=== PATIENT | male | born 1955 | race Caucasian/White ===

== ENCOUNTER → 2018-07-19 09:51 | Outpatient (CLI) | payer OTHER ==
[2015-12-06 09:08] VITALS: BMI 28.0
[~2018-07-19 09:51] MED LIST: ASPIRIN81 MG PO; BACTRIM 400-801 TAB PO; BETAPACE 80 MG80 MG PO; EFFIENT10 MG PO; GABAPENTIN100 MG PO; GLUCOPHAGE1000 MG PO; LANTUS INSULIN10 ML SC; NIFEDIPINE ER60 MG PO; PRAVACHOL20 MG PO; PRINIVIL10 MG PO; VOLTAREN75 MG
== END | disposition home or self-care (01) ==
LOC: D.HCCARDIO 07-12 10:00
PROVIDERS: ATTEND Internal Medicine Cardiovascular Disease
DX: I34.0 Nonrheumatic mitral (valve) insufficiency (principal)

== ENCOUNTER → 2019-08-10 08:06 | Outpatient (CLI) | payer MEDICARE ==
[2015-12-06 09:08] VITALS: BMI 28.0
== END | disposition home or self-care (01) ==
LOC: D.HCCECHO 08:06
PROVIDERS: ATTEND Internal Medicine Cardiovascular Disease
DX: I34.0 Nonrheumatic mitral (valve) insufficiency (principal)

== ENCOUNTER 2019-10-02 11:12 | Outpatient (CLI) | payer MEDICARE ==
[~2019-10-02] VITALS: Ht 193 cm; Wt 107.5 kg
--- NOTE | ~2019-10-02 | HEMODYNAMI ---
PATIENT:CAR ROMAN MEDICAL RECORD: [id number] : 51 LOCATION:[facility] ADMISSION DATE: 10/02/19 Generatedon:10/02/201913:22 Patient name: CAR ROMAN Patient #: [id number] SSN: [id number] : 1955 Date of study: 10/02/2019 Page: Of Hemodynamic Procedure Report Patient Data Patient Demographics Procedure consent was obtained First Name: CAR Gender: Male Last Name: ABEL : 1955 [facility] Initial: DANIKA Age: 64 year(s) Patient #: [id number] Race: SSN: [id number] Additional ID: [id number] Contact details [address]: [address] [place] [address] State: [place] City: [place] Zip code: [address] Past Medical History Allergies Allergen Reaction Date Comments Reported Other allergy 10/02/2019 SULFA/CODEINE Admission Admission Data Admission Date: 10/02/2019 Admission Time: 11:12 Arrival Date: 10/02/2019 Arrival Time: 0:00 Height (in.): 75.98 BSA: 2.38 (m2) Height (cm.): 193 BMI: 28.73 (kg/m2) Weight (lbs.): 235.9 Weight (kg.): 107 Lab Results Lab Result Date: 10/02/2019 Lab Result Time: 0:00 CBC Name Units Result Min Max Hematocrit % 45.2 --(-*--)-- 42 54 Hemoglobin g/dl 15 --(-*--)-- 13.5 17.5 Procedure Procedure Types Cath Procedure Diagnostic Procedure Cardioversion External Procedure Description Procedure Date Procedure Date: 10/02/2019 Procedure Start Time: 13:10 Procedure End Time: 13:21 Procedure Staff Name Function Dante Nuñez MD Performing Physician Pura Delaney RT Monitor Mu Gonzales RN Nurse Ron Vaca MD Additional personnel Indication Arrhythmia Atrial Fib Procedure Data Procedure Complications No complications Procedure Medications Medication Administration Route Dosage Oxygen etCO2 Nasal cannula 2 l/min Refer to Anesthesia Notes for Sedation Medications Hemodynamics Rest BSA: 2.38 (m2) HGB: 15 (g/dl) O2 Consumption: Estimated: 272.58 (ml/min) O2 Consumption indexed: Estimated:114.53 (ml/min/m) Heart Rate: 65 (bpm) Snapshots Pre Cath Intra NCS Post Cath Vital Signs Time Heart Resp SPO2 etCO2 NIBP (mmHg) Rhythm Pain Sedation Rate (ipm) (%) (mmHg) Status Level (bpm) 13:09:15 74 20 100 33.6 146/85(116) NSR 0 (11) 10(A) , No pain 13:13:31 54 17 94 24.6 123/75(104) NSR 0 (11) 9(A) , No pain 13:14:49 53 16 97 28.4 124/70(106) NSR 0 (11) 10(A) , No pain 13:18:16 52 16 99 16.4 124/76(109) NSR 0 (11) 10(A) , No pain Medications Time Medication Route Dose Verified Delivered Reason Notes Effective ness by by 13:09:51 Oxygen etCO2 2 Dante Renaeie used for Nasal l/min Joaquin Gonzales RN procedure cannula 13:10:47 Refer to Dante Mu Anesthesia Joaquin Gonzales RN Notes for Sedation Medications Procedure Log Time Note 13:04:42 Quick Combo opened to sterile field. 13:07:04 Informed consent obtained and on chart 13:07:35 Indication : Arrhythmia Atrial Fib 13:07:44 Procedure Status Cardioversion. 13:07:48 Mu Gonzales RN sent for patient. Start room use. 13:07:51 Time tracking: Regular hours (M-F 7:00 - 5:00) 13:07:58 Plan of Care:Hemodynamics will remain stable., Cardiac rhythm will remain stable., Comfort level will be maintained., Respiratory function will remain adequate., Patient/ family verbilizes understanding of procedure., Procedure tolerated without complication., Recovers from procedure without complications.. 13:08:07 Patient arrived from Pre/Post Procedure Room to [facility]. Patient remains on bed/stretcher for procedure. 13:08:09 Warm blankets applied, and mary beth hugger turned on for patient comfort. 13:08:10 Correct patient and procedure confirmed by team. 13:08:11 ECG and BP/O2 sat monitors applied to patient. 13:08:12 Vital chart was started 13:08:13 Baseline sample Acquired. 13:08:20 Rhythm: atrial fibrillation 13:08:22 Full Disclosure recording started 13:08:22 - 13:08:28 H&P Date Dictated: 10/02/2019 H&P Addendum completed by physician on day of procedure. (MUST COMPLETE FOR ALL OUTPATIENTS), New H&P dictated by physician.. 13:08:30 Pre-procedure instructions explained to patient. 13:08:31 Pre-op teaching completed and patient verbalized understanding. 13:08:33 Family in patients room. 13:08:36 Patient NPO since Midnight. 13:08:44 Was the patient premedicated? Yes 13:08:46 Is patient on blood thinner?Yes 13:08:51 ACC The patient was administered the following blood thiners within the last 24 hours: Xarelto 13:08:54 Patient diabetic? Yes. 13:08:56 If diabetic: On Metformin? Yes 13:08:58 If on Metformin: Last Dose? 10/02/2019 13:09:00 ----Pre-sedation anethsthesia assessment.---- 13:09:04 Previous problem with sedation/anesthesia? No ? 13:09:06 Snore? Yes 13:09:10 Sleep apnea? No 13:09:13 Deviated septum? Unknown 13:09:15 Opens mouth fully? Yes 13:09:17 Sticks out tongue? Yes 13:09:23 Airway obstruction? Yes ?ASTHMA 13:09:25 Dentures? No ? 13:09:38 IV patent on arrival in left forearm with 0.9% NaCl at [facility]. 13:09:47 Alarms reviewed by Claude Cook 13:09:48 Physician arrived 13:09:49 --------ALL STOP TIME OUT------ 13:09:50 Final Timeout: patient, procedure, and site verified with staff and physician. All members of the team are in agreement. 13:09:51 Oxygen 2 l/min etCO2 Nasal cannula was administered by Mu Gonzales RN; used for procedure; Verbal order read back and verified. 13:10:02 Fire Safety Assessment: A--An alcohol-based skin anteseptic being used preoperatively., C--Open oxygen or nitrous oxide is being used., E--There are other possible contributors. 13:10:07 Physical assessment completed. ASA score P 4 - A patient with severe systemic disease that is a constant threat to life as per Ron Vaca MD. 13:10:13 Sedation plan: IV Moderate Sedation Medication:Propofol 13:10:28 Dante Nuñez MD present and monitoring patient for TIVA. 13:10:45 Ron Vaca MD present and monitoring patient for TIVA. 13:10:47 Refer to Anesthesia Notes for Sedation Medications was administered by Mu Gonzales RN; ; Verbal order read back and verified. 13:10:47 Procedure started. 13:10:49 ------Cardioversion------ 13:10:50 Quick combo pads placed on patients chest and back. 13:11:03 Defibrillator synced and charged to 200 Joules. 13:11:05 Shock delivered. 13:11:09 Patient cardioverted to sinus rhythm . 13:11:17 Procedure ended.(Physican Out) 13:14:02 Post-procedure physical assessment completed. ASA score P 4 - A patient with severe systemic disease that is a constant threat to life as per Ron Vaca MD. 13:14:08 Post procedure rhythm: sinus rhythm 13:14:12 Post procedure instruction explained to patient.Patient verbalizes understanding. 13:14:13 Patient needs reinforcement of post procedure teaching. 13:15:05 Patient allergic to Other allergySULFA/CODEINE 13:15:50 Lab Result : Hemoglobin 15 g/dl 13:15:50 Lab Result : Hematocrit 45.2 % 13:18:14 Procedure and supply charges have been captured, reviewed, submitted an d are correct. 13:19:22 Procedure Complication : No complications 13:20:19 Arrival Date: 10/02/2019 12:00:00 AM 13:20:29 Patient Height : 75.98 inches 13:20:32 Patient Weight : 235.9 lbs 13:20:49 Vital chart was stopped 13:20:51 Operative report dictated upon procedure completion. 13:20:52 See physician's report for complete and final results. 13:20:55 Report given to Pre/Post Procedure Room. 13:20:59 Patient transfered to Pre/Post Procedure Room with Stretcher. 13:21:03 Procedure ended. 13:21:03 Full Disclosure recording stopped Device Usage Item Manufacture Quantity Catalog Hospital Part Current Minimal Lot# / Name Number Charge Number Stock Stock Soren al# Code [facility] [email or web address] [id number] Combo Signature Audit [place] Stage Time Signature Unsigned Intra-Procedure 10/02/2019 Pura 1:21:22 PM Elaina RT(R) (CV); Mu Gonzales RN; Dante Nuñez MD Signatures Performing Physician : Signature : Dante Nuñez MD Date : Time : Monitor : Pura Signature : Elaina RT Date : Time : Nurse : Mu Gonzales RN Signature : Date : Time : [facility] [address] [place] [address]
[2019-10-02] MEDS ORDERED: XARELTO15 MG PO (11:40)
[2019-10-02] MEDS ORDERED: FUROSEMIDE20 MG PO (11:40)
[2019-10-02] MEDS ORDERED: LISINOPRIL40 MG PO (11:41)
[2019-10-02] MEDS ORDERED: PROCARDIA XL60 MG PO (11:41)
[2019-10-02] MEDS ORDERED: GLUCOPHAGE500 MG PO (11:41)
[2019-10-02 11:50] VITALS: BP 160/103; Ht 193 cm; Wt 107.5 kg
[2019-10-02 12:07] LABS: HEMATOCRIT 45.2 % (42.0-54.0); LYMPHOCYTES 24.3 % (15-50); MCH 29.7 pg (26.0-34.0); MCHC 33.2 g/dL (31.0-37.0); MCV 89.5 fL (80.0-100.0); MEAN PLATELET VOLUME 11.4 fL (7.4-10.4); NEUTROPHILS 61.5 % (40-80); RBC 5.05 10x6/uL (4.20-6.10); RDW 14.2 % (11.5-14.5); WBC 5.5 10x3/uL (4.8-10.8)
[2019-10-02 12:08] LABS: PLATELET COUNT 188 10x3/uL (130-400)
[2019-10-02 12:14] LABS: INR 2.17 (0.85-1.17); PROTIME 23.9 SECONDS (11.6-15.0)
[2019-10-02 13:29] LABS: ANION GAP 9.4 mmol/L (8-16); CALCIUM 8.8 mg/dL (8.5-10.1); CARBON DIOXIDE 29.7 mmol/L (21.0-32.0); CREATININE - SERUM 1.5 mg/dL (0.6-1.3); POTASSIUM - SERUM 4.1 mmol/L (3.5-5.1)
--- NOTE | 2019-10-02 13:35 | NUR ---
PT REC'D TO ROOM 5 VIA STRETCHER FROM MANAGER FIELD. MONITORS ESTAB. - CM - SB WITH PACS. SON AT BS. SEE RESIDENTIAL FINISH CARPENTER. ALARMS ON AND C/L IN REACH.
--- NOTE | 2019-10-02 13:50 | NUR ---
CM - SB, HR 59, B/P 154/85. PT DENIES NEEDS. C/L IN REACH. ALARMS ON.
--- NOTE | 2019-10-02 14:20 | NUR ---
CM - SB. VSS. PIV D/C'D INTACT, DSG APPLIED AND PT ALLOWED UP TO GET DRESSED.
--- NOTE | 2019-10-02 14:26 | NUR ---
ALL DISCHARGE INSTRUCTIONS REVIEWED WITH PATIENT AND SON. PT VERBALIZES UNDERSTANDING.
--- NOTE | 2019-10-02 14:30 | NUR ---
PT DISCHARGED TO PRIVATE VEHICLE WITH SON, PT HAS ALL BELONGINGS AND PAPERWORK WITH F/U APPT DATE.
== END 2019-10-02 14:30 | disposition home or self-care (01) ==
LOC: D.CATH 11:12
PROVIDERS: ATTEND Internal Medicine Cardiovascular Disease
DX: I48.91 Unspecified atrial fibrillation (principal); I25.10 Atherosclerotic heart disease of native coronary artery without angina pectoris; I34.0 Nonrheumatic mitral (valve) insufficiency